=== PATIENT | male | born 1960 | race Caucasian/White ===

== ENCOUNTER 2017-09-23 19:21 | Emergency (ER) | payer OTHER ==
[~2017-09-23] VITALS: Ht 175.3 cm; Wt 88.8 kg
[~2017-09-23 19:21] MED LIST: UNKNOWN MEDS
[2017-09-23 19:31] VITALS: Ht 175.3 cm; Wt 88.8 kg
--- NOTE | 2017-09-23 20:04 | ERD ---
ER Documentation Chief Complaint Chief Complaint has not been taking meds, now states suicidal thoughts (BINH FLAHERTY MD) HPI This is a 56-year-old male with a past medical history of polysubstance abuse, DM, HTN, previous psychosis and bipolar disorder on depakote and seroquel, who has been non compliant with medications recently and is now presenting with auditory hallucinations and suicidal thoughts. The patient has flight of ideas , and he is quite distractible. When trying to get him to focus on the questions for the history. He continues to perseverate about all the medications he is not taking for his various medical issues. He reports feeling very energetic at this time with pressured speech. He has occasional recent feelings of grandeur and euphoria. That said, he also reports times when he feels almost catatonic like he cannot move. He is also hearing voices that are telling him to kill himself. He states that he attempted to overdose on ibuprofen the other day. The patient denies feeling sick recently. The patient denies fever or chills. The patient has had no headache or vision changes. The patient does not endorse neck or back pain. The patient denies lightheadedness or dizziness. The patient has had no chest pain or shortness of breath or trouble breathing. The patient denies nausea or vomiting. The patient denies abdominal pain or changes to bowel movements or urination. The patient has had no focal deficits. The patient has had no weakness or numbness or tingling to the face or extremities. (BINH FLAHERTY MD) ROS All systems reviewed and are negative except as per history of present illness. (BINH FLAHERTY MD) Medications Home Meds Discontinued Reported Medications [Unknown Meds] No Conflict Check 06/11/11 Allergies Allergies: Coded Allergies: haloperidol (Unverified Allergy, Unknown, 09/23/17) PMhx/Soc History of Surgery: No Hx Neurological Disorder: No Hx Respiratory Disorders: No Hx Cardiac Disorders: Yes (HTN, DM, HLD) Hx Psychiatric Problems: Yes (Bipolar d/o, Psychosis) Hx Miscellaneous Medical Probl: No Hx Alcohol Use: Yes Hx Substance Use: Yes Hx Tobacco Use: Yes (BINH FLAHERTY MD) FmHx Patient does not know his family history. (BINH FLAHERTY MD) Physical Exam Vitals Vital Signs Date Time Temp Pulse Resp B/P Pulse Ox O2 Delivery O2 Flow Rate FiO2 09/23/17 19:31 98.0 98 20 169/100 97 (LIVAN TERRAZAS DO) Physical Exam Const: No apparent distress, well-developed, well-nourished Head: Normocephalic, Atraumatic Eyes: Normal Conjunctiva. Extraocular movements intact. Pupils equal, round and reactive to light ENT: Normal External Ears, Nose and Mouth. Neck: Full range of motion. No meningismus. Resp: Clear to auscultation bilaterally, No wheezes, rales or rhonchi Cardio: Regular rate and rhythm. No murmurs, rubs or gallops Abd: Soft, non tender, non distended. Normal bowel sounds Skin: No petechiae or rashes Back: No midline tenderness. No CVA tenderness Ext: No cyanosis, or edema Neur: Awake and alert, oriented 4. Cranial nerves intact. No facial droop. Normal strength, sensation and coordination. Psych: Concerns of a manic state. Please see HPI for details (BINH FLAHERTY MD) Result Diagram: 09/23/[id number]/23/[id number] Results 24 hrs Laboratory Tests Test 09/23/17 19:59 09/23/17 20:40 White Blood Count 8.510^3/ul Red Blood Count 4.6910^6/ul Hemoglobin 14.5g/dl Hematocrit 41.9% Mean Corpuscular Volume 89.3fl Mean Corpuscular Hemoglobin 30.9pg Mean Corpuscular Hemoglobin Concent 34.6g/dl Red Cell Distribution Width 11.9% Platelet Count 63446^3/UL Mean Platelet Volume 10.4fl Neutrophils % 68.3% Lymphocytes % 23.3% Monocytes % 6.9% Eosinophils % 0.6% Basophils % 0.7% Nucleated Red Blood Cells % 0.0/100WBC Neutrophils # 5.810^3/ul Lymphocytes # 2.010^3/ul Monocytes # 0.610^3/ul Eosinophils # 0.110^3/ul Basophils # 0.110^3/ul Nucleated Red Blood Cells # 0.010^3/ul Sodium Level 143mmol/L Potassium Level 3.6mmol/L Chloride Level 103mmol/L Carbon Dioxide Level 25mmol/L Anion Gap 19 Blood Urea Nitrogen 11mg/dl Creatinine 0.93mg/dl Glucose Level 137mg/dl Calcium Level 9.5mg/dl Total Bilirubin 0.5mg/dl Direct Bilirubin 0.00mg/dl Indirect Bilirubin 0.5mg/dl Aspartate Amino Transf (AST/SGOT) 53IU/L Alanine Aminotransferase (ALT/SGPT) 38IU/L Alkaline Phosphatase 111IU/L Total Protein 8.2g/dl Albumin 5.1g/dl Globulin 3.10g/dl Albumin/Globulin Ratio 1.64 Salicylates Level < 1.0mg/dl Acetaminophen Level < 10.0ug/ml Ethyl Alcohol Level < 10.0mg/dl Urine Color STRAW Urine Clarity CLEAR Urine pH 5.0 Urine Specific [place] 1.006 Urine Ketones NEGATIVEmg/dL Urine Nitrite NEGATIVEmg/dL Urine Bilirubin NEGATIVEmg/dL Urine Urobilinogen NEGATIVEmg/dL Urine Leukocyte Esterase NEGATIVELeu/ul Urine Hemoglobin NEGATIVEmg/dL Urine Glucose 2+mg/dL Urine Total Protein NEGATIVEmg/dl Urine Opiates Screen Negative Urine Barbiturates Negative Urine Amphetamines Screen Negative Urine Benzodiazepines Screen Negative Urine Cocaine Screen Negative Urine Cannabinoids Negative Current Medications Medications (Trade) Dose Ordered Sig/Chung Route PRN Reason Start Time Stop Time Status Last Admin Dose Admin Divalproex Sodium (Depakote) 500 mg BID ONCE PO 09/23/17 23:30 09/23/17 23:31 DC 09/24/17 00:26 Quetiapine Fumarate (Seroquel) 50 mg QHS ONCE PO 09/24/17 21:00 09/24/17 21:01 (LIVAN TERRAZAS DO) Procedures/MDM MDM The patient's presentation warrants further investigation. The patient is presenting with signs and symptoms concerning for a manic episode of his bipolar disorder. He has irrational and asynchronous thinking, and he does endorse suicidal ideations with an attempt of ibuprofen overdose. The patient has been noncompliant on his medications, which is likely the culprit. The patient will require a psychiatric evaluation with possible placement. LABS The patient's blood work was obtained and reviewed. The patient's CBC shows no leukocytosis and no left shift. The patient is afebrile and does not appear systemically ill. I do not suspect a systemic infection. The patient is not anemic today. The patient's platelet count is unremarkable. The patient's CMP shows no signs of metabolic or electrolyte emergencies. The patient has unremarkable renal and hepatic function testing. The patient's urinalysis is unremarkable. His UDS is negative. The patient's alcohol, salicylate and Tylenol levels are also negative. TREATMENT/DISPOSITION The patient was placed in psychiatric hold in the emergency department by me. The patient was evaluated by tele-psychiatry who felt the patient would benefit from inpatient admission to a psychiatric facility. It is recommended that the patient be placed on a 5150 hold. In accordance with the psychiatrist, I restarted the patient's Depakote and Seroquel. The patient will be given doses of each this evening. The patient is currently pending a bed search. The patient's blood pressure was elevated at greater than 120/80 while in the emergency department. The patient was otherwise stable with no evidence of hypertensive urgency or emergency or end organ damage. The patient does not require admission for blood pressure control. I have discussed with the patient the risks of hypertension. I have advised the patient to follow up with the primary care physician for outpatient monitoring and treatment for hypertension in 2-3 days. I have instructed the patient to return to the ER for any new or worsening symptoms including chest pain, shortness of breath, headache, blurred vision, confusion, nausea, vomiting or LOC. Disclaimer: Inadvertent spelling and grammatical errors are likely due to EHR/ dictation software use and do not reflect on the overall quality of patient care. Note that the electronic time recorded on this note does not necessarily reflect the actual time of the patient encounter. (BINH FLAHERTY MD) I was signed out this patient by the departing physician. Tele-psychiatry evaluation has returned and is recommended the patient be placed on a involuntary 5150 protection of himself. I spoke to the patient is still common reasonable and somnolent currently. I will continue to monitor him for any signs of danger. (LIVAN TERRAZAS DO) Departure Diagnosis: Primary Impression: Suicidal ideation Additional Impressions: Bipolar disease, manic Noncompliance with medication regimen Condition: BINH Jimenez MD Sep 23, 2017 20:04 LIVAN TERRAZAS DO Sep 24, 2017 00:37 Direct Bilirubin 0.00mg/dl Indirect Bilirubin 0.5mg/dl Aspartate Amino Transf (AST/SGOT) 53IU/L Alanine Aminotransferase (ALT/SGPT) 38IU/L Alkaline Phosphatase 111IU/L Total Protein 8.2g/dl Albumin 5.1g/dl Globulin 3.10g/dl Albumin/Globulin Ratio 1.64 Salicylates Level < 1.0mg/dl Acetaminophen Level < 10.0ug/ml Ethyl Alcohol Level < 10.0mg/dl Urine Color STRAW Urine Clarity CLEAR Urine pH 5.0 Urine Specific [place] 1.006 Urine Ketones NEGATIVEmg/dL Urine Nitrite NEGATIVEmg/dL Urine Bilirubin NEGATIVEmg/dL Urine Urobilinogen NEGATIVEmg/dL Urine Leukocyte Esterase NEGATIVELeu/ul Urine Hemoglobin NEGATIVEmg/dL Urine Glucose 2+mg/dL Urine Total Protein NEGATIVEmg/dl Urine Opiates Screen Negative Urine Barbiturates Negative Urine Amphetamines Screen Negative Urine Benzodiazepines Screen Negative Urine Cocaine Screen Negative Urine Cannabinoids Negative (BINH FLAHERTY MD) Procedures/MDM MDM The patient's presentation warrants further investigation. LABS The patient's blood work was obtained and reviewed. The patient's CBC shows [no ] leukocytosis and [no] left shift. The patient is afebrile and does not appear systemically ill. I do [not] suspect a systemic infection. The patient is [not] anemic today. The patient's platelet count is unremarkable. The patient's CMP shows no signs of metabolic or electrolyte emergencies. The patient has unremarkable renal and hepatic function testing. EKG EKG read by me: Rate/Rhythm: Regular rate and rhythm at a rate of [] Intervals: Normal [place]: Normal Impression: No evidence of ischemia or arrhythmia IMAGING [] TREATMENT/DISPOSITION [] [] At this time, I feel that the patient stable for discharge. The patient will need follow-up with his primary care physician in 2-3 days. The patient will be given strict precautions with which to return to the emergency department. [] At this time, I feel that the patient requires admission for further evaluation and management. The patient will be admitted to [Panel] in accordance with the patient's insurance. The patient was accepted by [] at []. [] The patient's blood pressure was elevated at greater than 120/80 while in the emergency department. The patient was otherwise stable with no evidence of hypertensive urgency or emergency or end organ damage. The patient does not require admission for blood pressure control. I have discussed with the patient the risks of hypertension. I have advised the patient to follow up with the primary care physician for outpatient monitoring and treatment for hypertension in 2-3 days. I have instructed the patient to return to the ER for any new or worsening symptoms including chest pain, shortness of breath, headache, blurred vision, confusion, nausea, vomiting or LOC. Disclaimer: Inadvertent spelling and grammatical errors are likely due to EHR/ dictation software use and do not reflect on the overall quality of patient care. Note that the electronic time recorded on this note does not necessarily reflect the actual time of the patient encounter. (BINH FLAHERTY MD) I was signed out this patient by the departing physician. Tele-psychiatry evaluation has returned and is recommended the patient be placed on a involuntary 5150 protection of himself. I spoke to the patient is still common reasonable and somnolent currently. I will continue to monitor him for any signs of danger. (LIVAN TERRAZAS DO) Departure Diagnosis: Primary Impression: Suicidal ideation Additional Impression: Polysubstance abuse Condition: Stable BINH FLAHERTY MD Sep 23, 2017 20:04 LIVAN TERRAZAS DO Sep 24, 2017 00:37
[2017-09-23 20:32] LABS: BASOPHIL # 0.1 10^3/ul (0.0-0.1); BASOPHILS % 0.7 % (0.0-2.0); EOSINOPHILS # 0.1 10^3/ul (0.0-0.5); EOSINOPHILS % 0.6 % (0.0-7.0); HEMATOCRIT 41.9 % (42.0-52.0); HEMOGLOBIN 14.5 g/dl (14.0-18.0); LYMPHOCYTES % 23.3 % (15.0-51.0); MEAN CORPUSCULAR HEMOGLOBIN 30.9 pg (29.0-33.0); MEAN CORPUSCULAR HGB CONC 34.6 g/dl (32.0-37.0); MEAN CORPUSCULAR VOLUME 89.3 fl (82.0-101.0); MEAN PLATELET VOLUME 10.4 fl (7.4-10.4); MONOCYTE # 0.6 10^3/ul (0.3-0.9); MONOCYTES % 6.9 % (0.0-11.0); NEUTROPHIL # 5.8 10^3/ul (1.6-7.5); NEUTROPHILS % 68.3 % (39.0-77.0); PLATELET COUNT 281 10^3/UL (140-415); RED BLOOD COUNT 4.69 10^6/ul (4.70-6.10); RED CELL DISTRIBUTION WIDTH 11.9 % (11.5-14.5); WHITE BLOOD COUNT 8.5 10^3/ul (4.8-10.8)
[2017-09-23 21:05] LABS: ADD UMIC NO; UR ASCORBIC ACID 40 mg/dL (NEGATIVE); UR BILIRUBIN (Dip) NEGATIVE (NEGATIVE); UR BLOOD (Dip) NEGATIVE (NEGATIVE); UR CLARITY CLEAR (CLEAR); UR COLOR STRAW (YELLOW); UR GLUCOSE (Dip) 2+ mg/dL (NEGATIVE); UR KETONES (Dip) NEGATIVE (NEGATIVE); UR LEUKOCYTE ESTERASE (Dip) NEGATIVE Leu/ul (NEGATIVE); UR NITRITE (Dip) NEGATIVE (NEGATIVE); UR SPECIFIC GRAVITY (Dip) 1.006 (1.003-1.030); UR TOTAL PROTEIN (Dip) NEGATIVE (NEGATIVE); UR UROBILINOGEN (Dip) NEGATIVE (NEGATIVE)
[2017-09-23 21:10] LABS: ALANINE AMINOTRANSFERASE 38 IU/L (13-69); ALBUMIN 5.1 g/dl (3.3-4.9); ALBUMIN/GLOBULIN RATIO 1.64; ALKALINE PHOSPHATASE 111 IU/L (42-121); ANION GAP 19 (8-16); ASPARTATE AMINO TRANSFERASE 53 IU/L (15-46); BILIRUBIN,INDIRECT 0.5 mg/dl (0-1.1); BILIRUBIN,TOTAL 0.5 mg/dl (0.2-1.3); BLOOD UREA NITROGEN 11 mg/dl (7-20); CALCIUM 9.5 mg/dl (8.4-10.2); CARBON DIOXIDE 25 mmol/L (21-31); CHLORIDE 103 mmol/L (97-110); CREATININE 0.93 mg/dl (0.61-1.24); GLUCOSE 137 mg/dl (70-220); POTASSIUM 3.6 mmol/L (3.5-5.1); SODIUM 143 mmol/L (135-144); TOTAL PROTEIN 8.2 g/dl (6.1-8.1)
[2017-09-23 21:11] LABS: ACETAMINOPHEN < 10.0 ug/ml (10.0-30.0); ETHANOL < 10.0 mg/dl; SALICYLATE < 1.0 mg/dl (5.0-30.0)
[2017-09-23 21:22] LABS: BARBITURATES Negative (NEGATIVE); BENZODIAZEPINES Negative (NEGATIVE); CANNABINOIDS Negative (NEGATIVE); COCAINE Negative (NEGATIVE); OPIATES Negative (NEGATIVE)
--- NOTE | 2017-09-23 22:46 | PSY ---
Date/Time of Note Date/Time of Note DATE: 09/23/17 TIME: 22:45 Psychiatric Subjective Eval Consent Pt consented to telemedicine: Yes Subjective Evaluation Patient location: emergency Chief Complaint: has not been taking meds, now states suicidal thoughts Reason for consult: si Hospitalization: no Medical history Problems Medical Problems: (1) Polysubstance abuse Status: Acute (2) Suicidal ideation Status: Acute Allergies: Coded Allergies: Haloperidol (Verified Allergy, 06/11/11) Social History Marital status: single DPA/Conservatorship: No Psychiatric Objective Eval Mental Status Examination: Laboratory Results Laboratory Tests Test 09/23/17 19:59 09/23/17 20:40 White Blood Count 8.510^3/ul Red Blood Count 4.6910^6/ul Hemoglobin 14.5g/dl Hematocrit 41.9% Mean Corpuscular Volume 89.3fl Mean Corpuscular Hemoglobin 30.9pg Mean Corpuscular Hemoglobin Concent 34.6g/dl Red Cell Distribution Width 11.9% Platelet Count 90685^3/UL Mean Platelet Volume 10.4fl Neutrophils % 68.3% Lymphocytes % 23.3% Monocytes % 6.9% Eosinophils % 0.6% Basophils % 0.7% Nucleated Red Blood Cells % 0.0/100WBC Neutrophils # 5.810^3/ul Lymphocytes # 2.010^3/ul Monocytes # 0.610^3/ul Eosinophils # 0.110^3/ul Basophils # 0.110^3/ul Nucleated Red Blood Cells # 0.010^3/ul Sodium Level 143mmol/L Potassium Level 3.6mmol/L Chloride Level 103mmol/L Carbon Dioxide Level 25mmol/L Anion Gap 19 Blood Urea Nitrogen 11mg/dl Creatinine 0.93mg/dl Glucose Level 137mg/dl Calcium Level 9.5mg/dl Total Bilirubin 0.5mg/dl Direct Bilirubin 0.00mg/dl Indirect Bilirubin 0.5mg/dl Aspartate Amino Transf (AST/SGOT) 53IU/L Alanine Aminotransferase (ALT/SGPT) 38IU/L Alkaline Phosphatase 111IU/L Total Protein 8.2g/dl Albumin 5.1g/dl Globulin 3.10g/dl Albumin/Globulin Ratio 1.64 Salicylates Level < 1.0mg/dl Acetaminophen Level < 10.0ug/ml Ethyl Alcohol Level < 10.0mg/dl Urine Color STRAW Urine Clarity CLEAR Urine pH 5.0 Urine Specific [place] 1.006 Urine Ketones NEGATIVEmg/dL Urine Nitrite NEGATIVEmg/dL Urine Bilirubin NEGATIVEmg/dL Urine Urobilinogen NEGATIVEmg/dL Urine Leukocyte Esterase NEGATIVELeu/ul Urine Hemoglobin NEGATIVEmg/dL Urine Glucose 2+mg/dL Urine Total Protein NEGATIVEmg/dl Urine Opiates Screen Negative Urine Barbiturates Negative Urine Amphetamines Screen Negative Urine Benzodiazepines Screen Negative Urine Cocaine Screen Negative Urine Cannabinoids Negative Assessment Additional comments: IDENTIFYING INFORMATION: 56 year old Male patient who is currently located at the hospital and for whom psychiatric consultation was requested. SOURCES OF INFORMATION: The patient who appears to be somewhat reliable and the medical records; the nursing staff. CHIEF COMPLAINT: "psychotic break". HISTORY OF PRESENT ILLNESS: The patient was interviewed via telemedicine in the presence of and under the supervision of nursing staff of the hospital. The consent to conducting this interview via telemedicine was obtained by the nursing staff at the hospital. MANGO Caballero reports that the patient presents with thoughts of hurting himself. According to the emergency room physician's note, the patient with a history of polysubstance abuse and a psychiatric disorder presentswith auditory hallucinations and suicidal thoughts. The patient reports that he is having a lot of stress, has not been able to sleep, has been having racing thoughts, increased energy level. Admits to telling him I need peace. Reports that he has been very happy lately due to a manic episode. Reports being irritable lately and thinking of starting a fight with his landlord. Reports that he last night he took 5 ibuprofen tablets yesterday. Admits to with thoughts of shooting himself. Reports that he has thoughts of castrating himself with a knife. The patient denies using alcohol heavily or regularly. The patient denies using any other substances. In terms of past psychiatric history, the patient reports having a history of past psychiatric hospitalizations. The patient reports having a history of past suicide attempts by OD. Past medication trials: depakote, remeron. PAST MEDICAL HISTORY: preDM, HTN, HL. CURRENT MEDICATIONS: noncompliant (Depakote 500 mg po qhs, Remeron unknown dose, Lopid, aspirin, ) ALLERGIES TO MEDICATIONS: Haldol, prolixin (EPS). SOCIAL HISTORY: lives at [facility], single, no children; on SSI, + access to firearms. LABORATORY TESTS: CBC with hematocrit of 41.9, CMP with AST of 53, albumin 5.1, UDS negative, alcohol was not detected. REVIEW OF SYSTEMS: Constitutional (e.g., fever, weight loss): negative; Eyes, Ears, Nose, Mouth, Throat: negative; Cardiovascular: negative; Respiratory: negative; Gastrointestinal: negative; Genitourinary: negative; Musculoskeletal: negative; Integumentary (skin and/or breast): negative; Neurological: negative; Psychiatric: as per HPI; Endocrine: negative; Hematologic/Lymphatic: negative; Allergic/Immunologic: negative. MENTAL STATUS EXAMINATION: General Appearance and Behavior: Anxious, appears to be responding to internal stimuli, cooperative with most of the interview, excessively pleasant with the current interviewer, makes fair eye contact, fairly groomed, increased psychomotor activity, no abnormal movements noted. Speech: increased rate, regular rhythm, decreased latency, high volume, increased amount, difficult to redirect. Flow of thought: tangential, illogical, not goal-directed at times, goal- directed and other times. Content of thought: + auditory hallucinations, + delusions, no visual hallucinations, + suicidal ideation; no homicidal ideation, both positive or violent ideation. Mood: "perfect". Affect: euphoric, decreased range of reactivity. Attention: normal based on the interview. Insight: poor. Judgment: poor. Memory: normal based on the interview. Sensorium: alert and oriented to person, place, unable to assess orientation to date as the patient was not able to answer this question. ASSESSMENT: The patient's presentation and history are consistent with the diagnosis of BPAD , MRE manic with psychotic features. The patient presents with a manic episode with psychotic features in the context of medication noncompliance, psychosocial stressors. Beatrice I: BPAD, MRE manic with psychotic features. Beatrice II: Deferred. Beatrice III: see PMH. Beatrice IV: social stressors. Beatrice V: GAF: 10. PLAN: - Medication management: Would start Depakote 500 mg po qhs, Seroquel 50 mg po bid. Risks, benefits, alternatives discussed in detail, and the patient provided informed consent to proceed with this plan. Would start Zyprexa 10 mg IM PRN agitation [id number]; 3rd dose may be administered no earlier than 4 hours after 2nd dose); do not exceed 30 mg/24 hours; do not administer with IM benzodiazepines Will defer to the inpatient psychiatry team for other medication changes. - Labs: No other laboratory tests are needed at this time. - Psychotherapy: Provided supportive psychotherapy and psychoeducation. - Disposition: Would recommend involuntary admission to the inpatient psychiatric unit given the severity of the patient's psychiatric condition and the fact that the patient is an imminent danger to self and/or others so long as the patient has been cleared medically for admission to psychiatry. Inpatient psychiatric admission is at this time the least restrictive environment where the patient can receive the psychiatric care that is needed. Would place on suicide precautions. The patient fulfills criteria for being placed on an involuntary hold for being a danger to self as well as others due to a psychiatric disorder. Discussed about the above plan with Dr. Dee. COLLIN MULTANI MD Sep 23, 2017 22:46
[2017-09-23] MEDS ORDERED: DIVALPROEX (EC) 500 MG TAB PO ONE (23:30)
[2017-09-24] MEDS ORDERED: DIVALPROEX (EC) 500 MG TAB PO ONE (03:30)
[2017-09-24] MEDS ORDERED: QUETIAPINE 25 MG TAB PO ONE ×2 (03:30→21:00)
[2017-09-24] MEDS ORDERED: QUETIAPINE 25 MG TAB PO SCH (09:00)
--- NOTE | 2017-09-24 10:15 | QN ---
Documentation Comment Observation Note: Time: 4 hours Family Hx: Negative for diabetes Evaluation: Multiple exams showed improving symptoms and no evidence of clinical decompensation. The patient is currently receiving an evaluation by PMRT. KERRIE ROSS MD Sep 24, 2017 10:14
[2017-09-24 16:12] VITALS: BP 124/84; PULSE 95; RESP 12; TEMP 98.8
[2017-09-24] MEDS ORDERED: DIVALPROEX (EC) 500 MG TAB PO SCH (21:00)
== END 2017-09-24 16:49 | disposition short-term general hospital (02) ==
LOC: E/R 19:21
DX: F31.9 Bipolar disorder, unspecified (principal); R45.851 Suicidal ideations; E11.9 Type 2 diabetes mellitus without complications; I10 Essential (primary) hypertension; Z87.891 Personal history of nicotine dependence; Z91.14 Patient's other noncompliance with medication regimen
CPT/HCPCS: 36415; 80053; 80306; 80307; 81003; 85025; Z7502; Z7610